=== PATIENT | female | born 1945 | race Caucasian/White ===

== ENCOUNTER 2018-10-12 14:55 | Emergency (ER) | payer MEDICARE, BC, MEDICAID ==
[~2018-10-12] VITALS: Ht 165.1 cm; Wt 86.2 kg
[2018-10-12 15:34] LABS: Basophils # (auto) 0.1 uL; Basophils % (auto) 1.2 % (0.0-2.0); Eosinophils # (auto) 0.3 uL; Eosinophils % (auto) 3.2 % (0.0-7.0); Hematocrit 43.2 % (36.0-46.0); Hemoglobin 14.3 g/dL (12.2-16.2); Lymphocytes # (auto) 3.2 uL; Mean Corpuscular Hemoglobin 30.2 pg (28.0-32.0); Mean Corpuscular Hgb Conc. 33.2 g/dL (32.0-36.0); Monocytes # (auto) 0.9 uL; Monocytes % (auto) 9.5 % (0.0-12.0); Neutrophils # (auto) 4.9 uL; Neutrophils % (auto) 52.1 % (37.0-80.0); Platelet Count (auto) 241 10^3/uL (140-450); Red Blood Cells 4.75 10^6/uL (4.0-5.20); Red Cell Distribution Width 13.6 % (11.8-14.3); White Blood Cell 9.4 10^3/uL (4.4-10.8)
[2018-10-12] MEDS ORDERED: MECLIZINE HCL 25 MG TAB PO ONE (15:45)
[2018-10-12 15:48] LABS: Alanine Aminotransferase 31 U/L (13-56); Albumin 3.5 g/dL (3.4-5.0); Anion Gap 4 (5-15); Aspartate Aminotransferase 14 U/L (15-37); BUN/Creatinine Ratio 13.9; Blood Urea Nitrogen 10 mg/dL (7-18); Calcium 8.9 mg/dL (8.5-10.1); Carbon Dioxide 27 mmol/L (21-32); Chloride 106 mmol/L (98-107); GFR African American 103 mL/min; GFR Non-African American 85 mL/min; Glucose 260 mg/dL (74-106); Magnesium 2.3 mg/dL (1.6-2.6); Potassium 3.8 mmol/L (3.5-5.1); Sodium 137 mmol/L (136-145)
[2018-10-12 15:52] LABS: Alkaline Phosphatase 129 U/L (45-117); Bilirubin, Total 0.2 mg/dL (0.2-1.0); Total Protein 6.9 g/dL (6.4-8.2)
[2018-10-12 15:59] VITALS: BP 148/85
[2018-10-12 16:13] LABS: Urine Bacteria NONE SEEN /hpf (None Seen); Urine Blood Negative /uL (Negative); Urine Mucus FEW (None Seen); Urine Specific Gravity 1.006 (1.001-1.035); Urine WBC <1 /hpf (0 - 5)
== END 2018-10-12 17:00 | disposition home or self-care (01) ==
LOC: ER 14:55 → EDBD 14:55 → ER 17:00
DX: R42 Dizziness and giddiness (principal); E11.9 Type 2 diabetes mellitus without complications; M19.90 Unspecified osteoarthritis, unspecified site; Z90.49 Acquired absence of other specified parts of digestive tract; Z85.818 Personal history of malignant neoplasm of other sites of lip, oral cavity, and pharynx
CPT/HCPCS: 36415; 70450; 71045; 80053; 81001; 83735; 84484; 85025; 93005; 99284; J8597

== ENCOUNTER 2019-06-17 22:50 | Emergency (ER) | payer MEDICARE, BC, MEDICAID ==
[~2019-06-17] VITALS: Ht 165.1 cm; Wt 88.5 kg
[2019-06-17 23:42] LABS: Basophils # (auto) 0.1 uL; Basophils % (auto) 0.7 % (0.0-2.0); Eosinophils # (auto) 0.2 uL; Eosinophils % (auto) 2.1 % (0.0-7.0); Hematocrit 43.2 % (36.0-46.0); Hemoglobin 14.1 g/dL (12.2-16.2); Lymphocytes # (auto) 3.3 uL; Lymphocytes % (auto) 33.2 % (10.0-50.0); Mean Corpuscular Hemoglobin 29.3 pg (28.0-32.0); Mean Corpuscular Hgb Conc. 32.7 g/dL (32.0-36.0); Mean Corpuscular Volume 89.7 fL (80.0-100.0); Monocytes % (auto) 9.5 % (0.0-12.0); Neutrophils # (auto) 5.5 uL; Neutrophils % (auto) 54.5 % (37.0-80.0); Nucleated Red Blood Cells % 0.1 %; Platelet Count (auto) 239 10^3/uL (140-450); Red Blood Cells 4.81 10^6/uL (4.0-5.20); Red Cell Distribution Width 14.2 % (11.8-14.3)
[2019-06-17 23:57] LABS: Albumin 3.6 g/dL (3.4-5.0); BUN/Creatinine Ratio 15.3; Calcium 8.9 mg/dL (8.5-10.1); INR 0.93 (0.9-1.15); Partial Thromboplastin Time 25.9 sec (23.64-32.05); Potassium 3.6 mmol/L (3.5-5.1)
[2019-06-18] LABS: Bilirubin, Total 0.2 mg/dL (0.2-1.0); Total Protein 6.8 g/dL (6.4-8.2)
[2019-06-18 00:06] LABS: Urine Bacteria FEW /hpf (None Seen); Urine Blood Negative /uL (Negative); Urine Specific Gravity 1.005 (1.001-1.035); Urine WBC 1 /hpf (0 - 5)
[2019-06-18] MEDS ORDERED: ONDANSETRON HCL 4 MG/2 ML VIAL IV ONE (00:30)
[2019-06-18] MEDS ORDERED: MORPHINE SULFATE 4 MG/ML SYR/VIAL IV ONE (00:30)
[2019-06-18 01:59] LABS: Amphetamine Screen, Urine NEGATIVE (NEGATIVE); Barbiturate Scree,Urine NEGATIVE (NEGATIVE); Benzodiazephine Screen, Urine NEGATIVE (NEGATIVE); Cannabinoid Screen, Urine NEGATIVE (NEGATIVE); Cocaine Screen, Urine NEGATIVE (NEGATIVE); Opiate Scree,Urine NEGATIVE (NEGATIVE); Phencyclidine Screen, Urine NEGATIVE (NEGATIVE)
[2019-06-18 02:01] LABS: Alcohol, Urine < 3.0 mg/dL (0-5)
[2019-06-18 04:00] VITALS: BP 156/76
== END 2019-06-18 05:00 | disposition home or self-care (01) ==
LOC: EDBD 22:50 → ER 22:55
DX: R55 Syncope and collapse (principal); M19.90 Unspecified osteoarthritis, unspecified site; E11.9 Type 2 diabetes mellitus without complications; Z90.49 Acquired absence of other specified parts of digestive tract
CPT/HCPCS: 36415; 70450; 71045; 80053; 80307; 81001; 83880; 84484; 85025; 85610; 85730; 93005; 96374; 96375; 99284; J2270; J2405

== ENCOUNTER → 2020-01-17 | Emergency (ER) | payer MEDICARE, BC, MEDICAID ==
[~2020-01-17] VITALS: Ht 162.6 cm; Wt 85.7 kg
[2020-01-17 00:49] LABS: Basophils # (auto) 0.1 10 ^3/uL (0-0.2); Eosinophils # (auto) 0.2 10 ^3/uL (0-0.8); Eosinophils % (auto) 2.1 % (0.0-7.0); Hematocrit 43.5 % (36.0-46.0); Hemoglobin 14.4 g/dL (12.2-16.2); Lymphocytes # (auto) 3.7 10 ^3/uL (0.4-5.4); Lymphocytes % (auto) 33.8 % (10.0-50.0); Mean Corpuscular Hemoglobin 29.6 pg (28.0-32.0); Mean Corpuscular Volume 89.7 fL (80.0-100.0); Monocytes # (auto) 1.1 10 ^3/uL (0-1.3); Monocytes % (auto) 10.2 % (0.0-12.0); Neutrophils # (auto) 5.7 10 ^3/uL (1.6-8.6); Neutrophils % (auto) 52.9 % (37.0-80.0); Platelet Count (auto) 262 10^3/uL (140-450); Red Blood Cells 4.85 10^6/uL (4.0-5.20); Red Cell Distribution Width 13.8 % (11.8-14.3); White Blood Cell 10.8 10^3/uL (4.4-10.8)
[2020-01-17 01:12] LABS: Alanine Aminotransferase 28 U/L (13-56); Albumin 3.7 g/dL (3.4-5.0); Anion Gap 3 (5-15); Aspartate Aminotransferase 14 U/L (15-37); BUN/Creatinine Ratio 19.1; Blood Urea Nitrogen 13 mg/dL (7-18); Calcium 9.2 mg/dL (8.5-10.1); Carbon Dioxide 28 mmol/L (21-32); Chloride 104 mmol/L (98-107); GFR African American 109 mL/min; GFR Non-African American 90 mL/min; Glucose 252 mg/dL (74-106); Magnesium 1.9 mg/dL (1.6-2.6); Potassium 3.5 mmol/L (3.5-5.1); Sodium 135 mmol/L (136-145)
[2020-01-17 01:17] LABS: Alkaline Phosphatase 95 U/L (45-117); Bilirubin, Total 0.2 mg/dL (0.2-1.0); Total Protein 7.7 g/dL (6.4-8.2)
[2020-01-17 02:29] LABS: Urine Bacteria NONE SEEN /hpf (None Seen); Urine Blood Negative /uL (Negative); Urine Specific Gravity 1.008 (1.001-1.035); Urine WBC 1 /hpf (0 - 5)
[2020-01-17 02:30] VITALS: BP 133/56
== END | disposition home or self-care (01) ==
LOC: EDUNIT# 00:05 → EDBD 00:08 → ER 00:09
DX: R53.1 Weakness (principal); R42 Dizziness and giddiness; R00.2 Palpitations; I10 Essential (primary) hypertension; E11.9 Type 2 diabetes mellitus without complications; Z88.6 Allergy status to analgesic agent; Z88.2 Allergy status to sulfonamides; Z91.030 Bee allergy status; Z90.49 Acquired absence of other specified parts of digestive tract; Z98.890 Other specified postprocedural states
CPT/HCPCS: 36415; 71045; 80053; 81001; 83735; 83880; 84484; 85025; 93005

== ENCOUNTER 2021-06-30 18:30 | Emergency (ER) | payer MEDICARE, BC, MEDICAID ==
[~2021-06-30] VITALS: Ht 162.6 cm; Wt 81.6 kg
[2021-06-30 18:52] VITALS: BP 142/77
== END 2021-06-30 19:18 | disposition left against medical advice (07) ==
LOC: EDUNIT# 18:30 → EDBD 18:30 → ER 18:36
DX: T46.5X1A Poisoning by other antihypertensive drugs, accidental (unintentional), initial encounter (principal); Z53.21 Procedure and treatment not carried out due to patient leaving prior to being seen by health care provider; Y92.89 Other specified places as the place of occurrence of the external cause
CPT/HCPCS: 93005

== ENCOUNTER 2023-08-10 20:29 | Emergency (ER) | payer MEDICARE, BC, MEDICAID ==
[~2023-08-10] VITALS: Ht 170.2 cm; Wt 72.7 kg
[2023-08-10 20:49] VITALS: PULSE 84; RESP 18; TEMP 97.2; O2SAT 94
[2023-08-10] MEDS ORDERED: ALPR0.25 PO (21:00)
[2023-08-10] MEDS ORDERED: GLIP2.5T4 PO (21:00)
[2023-08-10] MEDS ORDERED: LOSA100T25 PO (21:00)
[2023-08-10] MEDS ORDERED: TRAM50TA2 PO (21:00)
[2023-08-10] MEDS ORDERED: HYDR-4296 PO (21:00)
[2023-08-10] MEDS ORDERED: HYDROcodone-ACET 10/325MG TAB PO ONE (23:30)
[2023-08-10 23:57] LABS: Urine Bacteria NONE SEEN /hpf (None Seen); Urine Blood Negative /uL (Negative); Urine Clarity HAZY (Clear); Urine Color Colorless (Yellow); Urine Protein, UAD Negative (Negative); Urine Urobilinogen Normal (Negative); Urine WBC 12 /hpf (0 - 5); Urine pH 5.5 (5.0-8.0)
[2023-08-11] MEDS ORDERED: IBUPROFEN 600 MG TAB PO ONE (00:45)
[2023-08-11] MEDS ORDERED: ACET-1304 PO (01:43)
[2023-08-11 02:00] VITALS: BP 105/75; PULSE 73; RESP 19; O2SAT 92
== END 2023-08-11 02:23 | disposition home or self-care (01) ==
LOC: ER 20:29 → EDBD 20:29 → ER 08-11 02:08
DX: M25.552 Pain in left hip (principal); M79.605 Pain in left leg; I10 Essential (primary) hypertension; F41.9 Anxiety disorder, unspecified; R51.9 Headache, unspecified; Z88.8 Allergy status to other drugs, medicaments and biological substances; Z79.899 Other long term (current) drug therapy; W18.39XA Other fall on same level, initial encounter; Y93.89 Activity, other specified; Y92.89 Other specified places as the place of occurrence of the external cause; Y99.8 Other external cause status
CPT/HCPCS: 70450; 72192; 73502; 81001; 93005

== ENCOUNTER 2025-02-19 18:55 | Emergency (ER) | payer MEDICARE, BC, MEDICAID ==
[~2025-02-19] VITALS: Ht 167.6 cm; Wt 82.0 kg
[~2025-02-19 18:55] MED LIST: ACET-1304 PO; ALPR0.25 PO; GLIP2.5T4 PO; HYDR25TA88 PO; LOSA100T25 PO; TRAM50TA2 PO
--- NOTE | 2025-02-19 19:21 | ED.PDOC ---
Musculoskeletal HPI Comments 79 year old female presents to the ED via EMS with a chief complaint of back pain s/p fall onset today (02/19/25) around 17:30. Patient states she was moving boxes when she fell, landing on RT side. Patient was able to get up, walk to bed, when she tried to swing RT leg onto bed was not able to. She is currently experiencing RT hip pain as well as RT sided low back pain. Patient reports a history of chronic right hip pain as well as previous lumbar spine surgeries. PMHx DM, HTN, arthritis. Denies LOC, head injury, nausea, vomiting, diarrhea, chest pain, shortness of breath. No other symptoms or modifying factors present at this time. Chief Complaint: Fall Injury Time Seen by MD: 19:00 Primary Care Provider: DR. DELA CRUZ Reviewed Notes: Medications, Allergies Allergies: Coded Allergies: Bee Venom (Verified Allergy, Unknown, 06/17/19) Iodine (Verified Allergy, Unknown, 06/17/19) Lidocaine (Verified Allergy, Unknown, 02/19/25) Sulfa Antibiotics (Verified Allergy, Unknown, 06/17/19) Home Meds Active Scripts Acetaminophen (Tylenol Extra Strength) 500 Mg Tab, 500 MG PO TID, #20 TAB Prov:RADHA RANDOLPH MD 08/11/23 Reported Medications Tramadol Hcl (Tramadol Hcl) 50 Mg Tab, 50 MG PO BIDPRN PRN for PRN, MG 08/10/23 Hydralazine Hcl (Hydralazine Hcl) 25 Mg Tab, 25 MG PO PRN PRN for SBP>160, MG 08/10/23 Losartan Potassium & Hydrochlo (Hyzaar) 1 Tab Tab, 1 TAB PO DAILY, #30 TAB 5 Refills 08/10/23 Glipizide-Metformin HCl (Glipizide/Metformin HCl 2.5-250 mg) 1 Tab Tab, 0.5 TAB PO BID, TAB 08/10/23 Alprazolam (Xanax) 0.25 Mg Tb, 1 TAB PO BID PRN for ANXIETY, #60 TAB 08/10/23 Information Source: Patient, Emergency Med Personnel Mode of Arrival: EMS Location: Right Extremity Location: Back, Hip Timing: Hours Prehospital treatment: None Severity: Moderate Able to Move Extremity: Yes Bear Weight: Limited Pain: Moderate Mechanism: Spontaneous Circumstances: Fall Onset of Symptoms: After Trauma Symptoms: Pain DVT Risk Factors: NONE Associated signs and symptoms: Back pain, Hip pain Vital Signs Vital Signs Date Time Temp Pulse Resp B/P (MAP) Pulse Ox O2 Delivery O2 Flow Rate FiO2 02/19/25 19:04 97.9 81 14 165/90 (115) 95 97.9 Physical Exam General: Awake, alert and oriented. No acute distress. Skin: Skin in warm, dry and intact. Appropriate color for ethnicity. HEENT: The head is normocephalic and atraumatic. Conjunctivae are clear without exudates or hemorrhage. Sclera is non-icteric. EOM are intact. No signs of nystagmus. Eyelids are normal in appearance without swelling or lesions. Oral mucosa is pink and moist. Minor swollen upper lip. Neck: The neck is supple with normal range of motion. No JVD. No C-spine tenderness. Cardiac: Heart rate and rhythm are normal. No murmurs, gallops, or rubs are auscultated. Respiratory: No signs of respiratory distress. Lung sounds are clear in all lobes bilaterally without rales, rhonchi, or wheezes. Abdominal: Abdomen is soft, non-tender without distention. Bowel sounds are present and normoactive in all four quadrants. Extremities: Right hip tender to palpation. Positive lumbar spine tenderness. No step-off. Otherwise no gross deformities are discolorations or lesions. Tolerates full range of motion of all other extremities without tenderness. No edema of the extremities. Patient is able to ambulate with assistance. She reports painful ambulation. Neurological: The patient is awake, alert and oriented to person, place, and time with normal speech. Speech is clear. There is no facial asymmetry. Psychiatric: Appropriate mood and affect. Good judgement and insight. Review of Systems: As stated HPI Past Medical History PAST MEDICAL HISTORY: Arthritis, DM, HTN Surgical History: Cholecystectomy, Surgical History (Other): back surgery AMBULANCE PARAMEDIC History: Denies all AMBULANCE PARAMEDIC Hx Family History Family History: Reviewed,noncontributory to illness Social History Smoker: Quit Greater Than 1 Year Alcohol: Denies ETOH Use Drugs: Denies Drug Use Lives In: Home Was a procedure done? Was a procedure done?: No Differential Diagnosis EXT Differential Diagnosis: Other Other Differential Diagnosis Differential diagnoses considered include but are not limited to closed head injury, skull fracture, TBI, long bone fracture, rib fracture, pneumothorax, spinal fracture, spinal injury, cardiac contusion, organ laceration, pelvic fracture, laceration, soft tissue injury, vascular injury, other X-Ray, Labs, Meds, VS Vital Signs Date Time Temp Pulse Resp B/P (MAP) Pulse Ox O2 Delivery O2 Flow Rate FiO2 02/19/25 19:04 97.9 81 14 165/90 (115) 95 97.9 Lab Test 02/19/25 20:22 Range/Units POC Glucose 123 H 70-106 mg/dl INDICATION: Fall, r/o fracture COMPARISON: None TECHNIQUE: CT of the right was performed without contrast. Volume transverse images were obtained and reconstructed in multiple planes using bone and soft tissue algorithms. CONTRAST: None Radiation Dose Information: CT Dose: CTDI volume is 22.51 mGy. Dose-length product is 776.63 mGy*cm FINDINGS: The alignment is normal. The joint spaces are normal. There is no fracture, dislocation, or focal osseous lesions. The soft tissues are normal. IMPRESSION: 1. No acute fracture 2. Arthritic changes right hip 3. 4. All CT scans at this medical facility are performed using dose modulation techniques as appropriate to a performed exam including the following: Automated exposure control was utilized; adjustment of the MA and/or KV according to patient size; and use of iterative reconstruction technique. ATED BY: HOMERO GONZALEZ Jr., DO DICTATED DATE/TIME: 02/19/252022 SIGNED BY: HOMERO GONZALEZ Jr., SIGNED DATE/TIME: 02/19/252022 CC: EXAM: CT LS SPINE WO CONTRAST INDICATION: Fall, r/o fracture COMPARISON: None TECHNIQUE: Multiple axial CT images of the lumbar spine were obtained using bone algorithm. Axial and coronal reformatting was done. Bone and soft tissue windows were reviewed. Radiation Dose Information: CT Dose: CTDI volume is 35.23 mGy. Dose-length product is 1381.87 mGy*cm FINDINGS: No CT evidence of acute fracture or traumatic mal-alignment. The visualized paraspinal soft tissues are grossly unremarkable. [id number] degenerative changes are scattered throughout the lumbar spine Surgical fixation hardware is seen at the level of L4-L5. 2 paraspinal wires are seen. No evidence of hardware complication. IMPRESSION: 1. No CT evidence of acute fracture or traumatic mal-alignment of the bony lumbar spine. 2. Surgical fixation hardware seen at L4-L5. No evidence of hardware complication Radiation optimization: All CT scans at this facility use at least one of these dose optimization techniques: automated exposure control mA and/or kV adjustment per patient size (includes targeted exams where dose is matched to clinical indication) or iterative reconstruction. ATED BY: BOYD YANEZ MD DICTATED DATE/TIME: 02/19/252027 SIGNED BY: BOYD YANEZ MD SIGNED DATE/TIME: 02/19/252027 CC: Time of 1ST Reevaluation: 19:30 Reevaluation 1ST: Unchanged Patient Education/Counseling: Need For Follow Up Family Education/Counseling: No Family Present Departure 1 Departure Time of Disposition: 20:46 Impression: Primary Impression: Fall Additional Impressions: Hip pain Low back pain Disposition: 01 HOME / SELF CARE / HOMELESS Condition: Stable Additional Instructions: ED DISCHARGE INSTRUCTIONS Instructions: Please read all instructions provided in this packet carefully. Although you have been discharged from the Emergency Department, this does not mean that you have a "clean bill of health". No definitive diagnosis for your symptoms has been made today. It is possible that you are in the process of developing a serious illness. This is why you must return to the ED without fail if any new or worsening symptoms (especially if your symptoms include vomiting, weakness, chest pain, trouble breathing, abdominal pain, fever, headache, confusion, trouble seeing, or trouble walking) It is also very important that you see a primary care doctor within the next 1-4 days to follow up. If you are unable to get an appointment, return to the ED for re-evaluation. e-Prescriptions Acetaminophen (Acetaminophen Er) 650 Mg Tab 650 MG PO TIDPRN PRN for 3 Days, #9 TAB Prov: CARL MALONE MD 02/19/25 Comments 79-year-old female presents after mechanical fall.. Normal appearing without any signs or symptoms of serious injury on secondary trauma survey. Low suspicion for ICH or other intracranial traumatic injury. No seatbelt signs or abdominal ecchymosis to indicate concern for serious trauma to the thorax or abdomen. Pelvis without evidence of injury and patient is neurologically intact. Patient is able to ambulate in the emergency department with the assistance. Explained to patient that they will likely be sore for the coming days and can use tylenol to control the pain, patient given return precautions. Patient well-appearing, nontoxic. Advised prompt follow-up with PCP, return to the ED with any new, worsening or concerning symptoms. - I reviewed the following notes from the pt's past medical encounters: Encounter August 2023 for fall The following tests were ordered, and results were reviewed by me: (See diagnostic results section) The following test were independently interpreted by me: N/A Additional information was gathered from interviewing the following independent historians: EMS personnel I discussed treatments and results with patient Decision regarding hospitalization or escalation of hospital level of care: Risks and benefits of admission for further treatment of patient's condition was considered however due to patient's stable condition patient will be discharged to follow up closely or return to care for worsening of condition or inability to follow up. Critical Care Note Critical Care Time?: No Stability Stability form required: No I personally scribed for CARL MALONE MD ([employer]) on 02/19/25 at 19:21. Electronically submitted by Jovita Abad ([email or web address]). I personally scribed for CARL MALONE MD ([email or web address]) on 02/19/25 at 19:55. Electronically submitted by Jovita Abad ([email or web address]). CARL MALONE MD Feb 19, 2025 19:21
--- NOTE | 2025-02-19 20:25 | DVH ---
INDICATION: Fall, r/o fracture COMPARISON: None TECHNIQUE: CT of the right was performed without contrast. Volume transverse images were obtained and reconstructed in multiple planes using bone and soft tissue algorithms. CONTRAST: None Radiation Dose Information: CT Dose: CTDI volume is 22.51 mGy. Dose-length product is 776.63 mGy*cm FINDINGS: The alignment is normal. The joint spaces are normal. There is no fracture, dislocation, or focal osseous lesions. The soft tissues are normal. IMPRESSION: 1. No acute fracture 2. Arthritic changes right hip 3. 4. All CT scans at this medical facility are performed using dose modulation techniques as appropriat e to a performed exam including the following: Automated exposure control was utilized; adjustment of the MA and/or KV according to patient size; and use of iterative reconstruction technique.
--- NOTE | 2025-02-19 20:30 | DVH ---
EXAM: CT LS SPINE WO CONTRAST INDICATION: Fall, r/o fracture COMPARISON: None TECHNIQUE: Multiple axial CT images of the lumbar spine were obtained using bone algorithm. Axial an d coronal reformatting was done. Bone and soft tissue windows were reviewed. Radiation Dose Information: CT Dose: CTDI volume is 35.23 mGy. Dose-length product is 1381.87 mGy*cm FINDINGS: No CT evidence of acute fracture or traumatic mal-alignment. The visualized paraspinal soft tissues a re grossly unremarkable. [id number] degenerative changes are scattered throughout the lumbar spine Surgical fixation hardware is seen at the level of L4-L5. 2 paraspinal wires are seen. No evidence of hardware complication. IMPRESSION: 1. No CT evidence of acute fracture or traumatic mal-alignment of the bony lumbar spine. 2. Surgical fixation hardware seen at L4-L5. No evidence of hardware complication Radiation optimization: All CT scans at this facility use at least one of these dose optimization gary hniques: automated exposure control mA and/or kV adjustment per patient size (includes targeted exam s where dose is matched to clinical indication) or iterative reconstruction.
[2025-02-19] MEDS: ACETAMINOPHEN 325 MG TAB PO ONE (20:44)
[2025-02-19] MEDS: NAPROXEN 500 MG TAB PO ONE (20:44)
[2025-02-19] MEDS: traMADol HCL 50 MG TAB PO ONE (20:45)
[2025-02-19] MEDS ORDERED: ACET650T12 PO (20:47)
[2025-02-19 21:21] VITALS: BP 156/75; TEMP 98.5
[2025-02-19 21:22] VITALS: PULSE 71; RESP 12; O2SAT 94
--- NOTE | 2025-02-19 22:24 | DVH ---
Exam: CT CHST AB PEL WO CON-NO IV/ORAL History: Right posterior chest tenderness after fall/ ABD PAIN Comparison Study: None Technique: Multidetector spiral CT of the chest, abdomen, and pelvis was performed from lung bases to pubic symphysis. Imaging was performed without IV contrast. Axial, coronal and sagittal multiplana r reformats were obtained from the axial data set by the technologist. Radiation Dose : 1. Abdomen/Pelvis: CTDIvol 15.2 mGy, DLP 1126 mGy*cm. Findings: Evaluation of solid organs is limited due to lack of intravenous contrast use. Lungs: No pneumonia Pleura: No pleural effusion or pneumothorax. Cardiac: Unremarkable Lower neck: Unremarkable Liver: The liver is normal in size. No focal lesions. Gallbladder and Biliary Tree: Gallbladder is surgically absent. Spleen: Unremarkable Pancreas: The pancreas is grossly normal in appearance. Adrenal Glands: Unremarkable Kidneys: Kidneys are grossly normal without calculi or hydronephrosis. Bladder: Grossly unremarkable for degree of distention. Bowel: The stomach is grossly normal in appearance. Small bowel and colon are normal in caliber and d istribution. The appendix is not visualized; however, no secondary findings of acute appendicitis id entified. Ascites: Absent Lymphadenopathy: No mesenteric, retroperitoneal or periportal lymphadenopathy. Abdominal Wall and Mesentery: Unremarkable. Vasculature: The visualized abdominal aorta is normal in size and caliber. Evaluation of abdominal a nd pelvic vessels is limited due to lack of intravenous contrast. Pelvic Organs: Unremarkable Musculoskeletal: No aggressive focal bony lesions, acute fractures or dislocation. Surgical fixation hardware seen in the lower lumbar spine IMPRESSION: 1. No acute abdominal or pelvic findings. Radiation optimization: All CT scans at this facility use at least one of these dose optimization gary hniques: automated exposure control mA and/or kV adjustment per patient size (includes targeted exam s where dose is matched to clinical indication) or iterative reconstruction.
== END 2025-02-19 23:21 | disposition home or self-care (01) ==
LOC: ER 18:55 → EDBD 18:55 → ER 23:18
DX: M25.551 Pain in right hip (principal); M54.50 Low back pain, unspecified; I10 Essential (primary) hypertension; E11.9 Type 2 diabetes mellitus without complications; M19.90 Unspecified osteoarthritis, unspecified site; Z79.84 Long term (current) use of oral hypoglycemic drugs; Z79.899 Other long term (current) drug therapy; Z90.49 Acquired absence of other specified parts of digestive tract; Z91.030 Bee allergy status; Z91.041 Radiographic dye allergy status; Z88.2 Allergy status to sulfonamides; Z88.8 Allergy status to other drugs, medicaments and biological substances; W18.39XA Other fall on same level, initial encounter; Y93.89 Activity, other specified; Y92.89 Other specified places as the place of occurrence of the external cause; Y99.8 Other external cause status
CPT/HCPCS: 71250; 72131; 73700; 74176; 82962